=== PATIENT | female | born 1945 | race Caucasian/White ===

== ENCOUNTER → 2017-12-23 14:10 | Outpatient (POV) | payer MEDICARE, OTHER, SELFPAY | PROVIDERS: Visit Provider Dermatology | DX: Z00.00 Encounter for general adult medical examination without abnormal findings (principal) ==

== ENCOUNTER → 2018-03-03 08:25 | Outpatient (POV) | payer MEDICARE, OTHER, SELFPAY | PROVIDERS: Visit Provider Dermatology | DX: Z00.00 Encounter for general adult medical examination without abnormal findings (principal) ==

== ENCOUNTER → 2018-09-09 09:10 | Outpatient (CLI) | payer MEDICARE, OTHER, SELFPAY ==
--- NOTE | 2018-09-09 09:18 | US_ITS ---
US abdomen limited History:Right upper quadrant pain Ordering Physician:Agueda Rudolph APRN Patient Age: 73 years Comparison:None Findings: Pancreas:Unremarkable. No obvious mass or abnormal fluid collection. No ductal dilatation Liver:Unremarkable. No obvious mass or abnormal fluid collection. No ductal dilatation Right Kidney:1 cm cyst is present along the lower pole the right kidney and a 1.6 cm cyst is present in the upper pole. Gallbladder:No gallstones, pericholecystic fluid, gallbladder wall thickening, or biliary dilatation. There are few hyperechoic small foci noted along the gallbladder wall suggesting small polyps. Common bile duct is normal at 4 mm. Impression: 1. Possible small polyps in the gallbladder. No gallstones. 2. Small right renal cysts
== END ==
PROVIDERS: PCP Nurse Practitioner; Visit Provider Nurse Practitioner
DX: R10.11 Right upper quadrant pain (principal)
CPT/HCPCS: 76705

== ENCOUNTER → 2018-09-23 10:19 | Outpatient (CLI) | payer MEDICARE, OTHER, SELFPAY ==
--- NOTE | 2018-09-23 10:25 | NM_ITS ---
NM hepatobiliary w pharm HISTORY: Right upper quadrant pain, abnormal gallbladder ultrasound possible gallbladder polyps ITS.REASON: ABNORMAL US ORDERING PHYSICIAN: Agueda Rudolph APRN PATIENT AGE: 73 years COMPARISON: None DOSE: 8.02 mCi technetium Choletec 1.5 mcg of CCK FINDINGS: Homogeneous activity is present within the hepatic parenchyma. Activity is present in the gallbladder by 20 minutes. Activity is present in the small bowel by 60 minutes. The gallbladder ejection fraction is calculated to be 93% The patient did not report pain or other symptoms during CCK infusion. IMPRESSION: Unremarkable hepatobiliary scan and gallbladder ejection fraction. No evidence of common or cystic duct obstruction with normal gallbladder ejection fraction
== END ==
PROVIDERS: PCP Nurse Practitioner; Visit Provider Nurse Practitioner
DX: R93.89 Abnormal findings on diagnostic imaging of other specified body structures (principal)
CPT/HCPCS: 78227; A9537; J2805

== ENCOUNTER → 2018-12-01 14:26 | Outpatient (POV) | payer MEDICARE, OTHER, SELFPAY | PROVIDERS: Visit Provider Dermatology | DX: Z00.00 Encounter for general adult medical examination without abnormal findings (principal) ==

== ENCOUNTER → 2019-02-23 15:21 | Outpatient (POV) | payer MEDICARE, OTHER, SELFPAY | PROVIDERS: Visit Provider Dermatology | DX: Z00.00 Encounter for general adult medical examination without abnormal findings (principal) ==

== ENCOUNTER → 2019-07-28 12:52 | Outpatient (CLI) | payer MEDICARE, SELFPAY ==
--- NOTE | 2019-07-28 13:04 | US_ITS ---
PROCEDURE: US KIDNEY CLINICAL INDICATION: RENAL CYST Follow-up renal cyst COMPARISON: [facility] US abdomen limited from 09/09/[address] abdomen pelvis wo con from 11/01/2018 FINDINGS: Right kidney is 9 x 5 x 5 cm. There is cortical thinning. There are at least 3 right renal cyst 1 in the upper 1 in the mid and 1 the lower pole. These measure approximately 1 cm. No hydronephrosis. The left kidney is 9 x 5 x 5 cm with mild cortical thinning. There is a 1 cm cyst in the mid polar region and there are left parapelvic cysts versus hydronephrosis. IMPRESSION: Bilateral renal cysts with left parapelvic renal cysts versus hydronephrosis. CT without and with contrast with post enhanced CT with delayed imaging may provide further evaluation and to distinguish between parapelvic renal cysts and hydronephrosis Dictated by: Gibran Dailey MD 07/28/2019 19:24 Electronically signed by Gibran Dailey MD in [place] 07/28/2019 19:24
== END ==
PROVIDERS: PCP Family Medicine; Visit Provider Nurse Practitioner Family
DX: N28.1 Cyst of kidney, acquired (principal)
CPT/HCPCS: 76770

== ENCOUNTER → 2019-08-11 09:42 | Outpatient (CLI) | payer MEDICARE, OTHER, SELFPAY ==
[2019-08-11 11:03] LABS: Blood Urea Nitrogen 31 mg/dl (7-17); Estimated Glomerular Filt Rate 40 ml/min (>60); GFR (African American) 48 ML/MIN (>60)
== END ==
PROVIDERS: Visit Provider Nurse Practitioner Family
DX: N28.1 Cyst of kidney, acquired (principal)
CPT/HCPCS: 36415; 82565; 84520

== ENCOUNTER → 2019-08-13 10:14 | Outpatient (CLI) | payer MEDICARE, SELFPAY ==
--- NOTE | 2019-08-13 10:27 | CT_ITS ---
PROCEDURE: CT ABDOMEN WO/W CON CLINICAL HISTORY: ABNORMAL RENAL ULTRASOUND Hydronephrosis versus parapelvic renal cyst. COMPARISON: [facility] CT abdomen pelvis wo con from 11/01/2018 US KIDNEY from 07/28/2019 TECHNIQUE: Axial images obtained with sagittal and coronal reformats. All CT scans at the facility use one or more dose reduction, viz: automated exposure control, ma/kV adjustment per patient size (including targeted exams where dose is matched to indication, i.e. head), or iterative reconstruction technique. FINDINGS: There is a moderate-sized hiatal hernia. The liver, spleen, adrenal glands, and pancreas have an unremarkable appearance. Scattered small nodes are present in the central mesentery with faint increased density of the central mesenteric fat which is nonspecific and not significantly changed. There are bilateral parapelvic renal cysts. No hydronephrosis. Bilateral renal cortical cysts are also noted. There is a small umbilical hernia containing fat. Levoscoliosis of the lumbar spine with degenerative changes IMPRESSION: The ultrasound abnormality corresponds to bilateral peripelvic renal cysts with small bilateral renal cortical cyst. No hydronephrosis. Moderate-sized hiatal hernia Dictated by: Gibran Dailey MD 08/14/2019 08:49 Electronically signed by Gibran Dailey MD in [place] 08/14/2019 08:49
== END ==
PROVIDERS: PCP Family Medicine; Visit Provider Nurse Practitioner
DX: R93.429 Abnormal radiologic findings on diagnostic imaging of unspecified kidney (principal)
CPT/HCPCS: 74170; Q9967

== ENCOUNTER → 2020-01-25 13:22 | Outpatient (CLI) | payer MEDICARE, SELFPAY ==
--- NOTE | 2020-01-25 13:31 | XR_ITS ---
PROCEDURE: XR HIP LT 2-3V W/PELVIS CLINICAL INDICATION: left hip pain pain and stiffness COMPARISON: [facility] HIP2L HIP-2 VIEWS-LT from 01/04/2013 CR HIP2L HIP-2 VIEWS-LT from 01/19/2013 CR HIP2L HIP-2 VIEWS-LT from 02/16/2013 CR HIP2L HIP-2 VIEWS-LT from 08/11/[address] ABDOMEN WO/W CON from 08/13/2019 FINDINGS: Status post left hip hemiarthroplasty. There is good alignment with no evidence of complications. No acute fracture or dislocation. There are mild osteoarthritic changes of the symphysis pubis and right hip. Degenerative changes lumbar spine IMPRESSION: No acute finding status post left hip hemiarthroplasty. Mild degenerative changes of the right hip and symphysis pubis Dictated by: Gibran Dailey MD 01/26/2020 06:45 Gibran Dailey MD in [place] 01/26/2020 06:45
== END ==
PROVIDERS: PCP Family Medicine; Visit Provider Orthopaedic Surgery
DX: M25.552 Pain in left hip (principal)
CPT/HCPCS: 73502

== ENCOUNTER → 2020-02-09 12:37 | Outpatient (CLI) | payer MEDICARE, SELFPAY ==
--- NOTE | 2020-02-09 12:40 | XR_ITS ---
PROCEDURE: XR KNEE RT 4V CLINICAL INDICATION: right knee pain COMPARISON: No exams were available for comparison FINDINGS: Osteoarthritic changes are present involving all 3 compartments Mild in nature. Small suprapatellar effusion. Other findings:Chondrocalcinosis medial lateral compartment IMPRESSION: Osteoarthritis with small knee joint effusion and chondrocalcinosis Dictated by: Gibran Dailey MD 02/09/2020 14:42 Gibran Dailey MD in [place] 02/09/2020 14:42
--- NOTE | 2020-02-09 12:40 | XR_ITS ---
PROCEDURE: XR KNEE LT 4V CLINICAL INDICATION: left knee pain COMPARISON: No exams were available for comparison FINDINGS: No fracture or dislocation. No lytic or blastic change. There is normal mineralization. There are mild osteoarthritic changes involving all 3 compartments. Minimal chondrocalcinosis of the medial and lateral meniscus. Other findings:None. IMPRESSION: Mild osteoarthritis with chondrocalcinosis Dictated by: Gibran Dailey MD 02/09/2020 14:44 Gibran Dailey MD in [place] 02/09/2020 14:44
== END ==
PROVIDERS: PCP Family Medicine; Visit Provider Orthopaedic Surgery
DX: M25.562 Pain in left knee (principal); M25.561 Pain in right knee
CPT/HCPCS: 73564

== ENCOUNTER → 2020-05-22 14:38 | Outpatient (CLI) | payer MEDICARE, SELFPAY ==
[2020-05-22 17:08] LABS: Blood Urea Nitrogen 28 mg/dl (7-17); Estimated Glomerular Filt Rate 40 ml/min (>60); GFR (African American) 48 ML/MIN (>60)
== END ==
PROVIDERS: Visit Provider Nurse Practitioner Family
DX: Z01.818 Encounter for other preprocedural examination (principal); R10.31 Right lower quadrant pain; N39.0 Urinary tract infection, site not specified; N81.10 Cystocele, unspecified
CPT/HCPCS: 36415; 82565; 84520

== ENCOUNTER → 2020-05-23 10:33 | Outpatient (CLI) | payer MEDICARE, SELFPAY ==
--- NOTE | 2020-05-23 10:37 | CT_ITS ---
PROCEDURE: CT ABDOMEN PELVIS W CON CLINICAL INDICATION: RECURRENT UTI, FEMALE BLADDER PROLAPSE, RLQ ABD PAIN COMPARISON: CT CT ABDOMEN WO/W CON from 08/13/2019 TECHNIQUE: IV Contrast: 75ML Isovue 370 Oral Contrast None Axial images obtained with sagittal and coronal reformats. All CT scans at the facility use one or more dose reduction, viz: automated exposure control, ma/kV adjustment per patient size (including targeted exams where dose is matched to indication, i.e. head), or iterative reconstruction technique. FINDINGS: There is a large right hiatal hernia. There are coronary artery calcifications present. The liver, gallbladder, spleen, and adrenal glands have an unremarkable appearance. Unremarkable appearing pancreas. Multiple bilateral parapelvic and renal cortical cysts are present. No hydronephrosis. No renal calculi. No ureteral calculi. There is mild haziness of the mesenteric fat not significantly changed in central mesenteric region. There has been a prior appendectomy. There is diffuse colonic diverticulosis but no evidence of diverticulitis. There has been a prior hysterectomy. No abdominal wall hernias. There are few scattered small mesenteric lymph nodes. There is lumbar scoliosis convex left. Prior left hip arthroplasty placement with mild acetabular protrusio. IMPRESSION: 1. No acute finding. 2. Large hiatal hernia 3. Colonic diverticulosis without diverticulitis Dictated by: Gibran Dailey MD 05/24/2020 14:31 Gibran Dailey MD in [place] 05/24/2020 14:31
== END ==
PROVIDERS: PCP Family Medicine; Visit Provider Nurse Practitioner Family
DX: R10.31 Right lower quadrant pain (principal); N39.0 Urinary tract infection, site not specified; N81.10 Cystocele, unspecified
CPT/HCPCS: 74177; Q9967

== ENCOUNTER → 2021-12-07 08:56 | Outpatient (CLI) | payer MEDICARE, SELFPAY ==
--- NOTE | 2021-12-07 09:02 | CT_ITS ---
FINAL REPORT CLINICAL HISTORY: RENAL CYST COMPARISON: May 24, 2019 lungs FINDINGS: CT ABDOMEN with and without: PROCEDURE: Axial images were obtained from the lung base to the iliac crest by computed tomography before and after the administration of contrast. This study was performed with techniques to keep radiation doses as low as reasonably achievable (ALARA). Individualized dose reduction techniques using automated exposure control or adjustment of mA and/or kV according to the patient's size were employed. ABDOMEN: There is a moderate hiatal hernia. There is mild scarring in the lung bases. A calcified granuloma is seen in the right lung base. The heart is normal in size. The liver is normal. The gallbladder is present. The spleen is normal. No adrenal masses present. The pancreas is normal. There are several bilateral low-attenuation renal masses that appears slightly larger than on the prior exam and have imaging characteristics consistent with simple cysts. There are also bilateral parapelvic renal cysts. There is diffuse vascular calcification. The aorta is normal in caliber. There is no free fluid or adenopathy. IMPRESSION: Bilateral renal cysts, slightly larger. Bilateral parapelvic renal cysts. Moderate hiatal hernia. Reviewed, Interpreted and Dictated by Kevin Cosby III, MD Transcribed by Memo Varner Authenticated and [facility]
[2021-12-07 09:34] LABS: Blood Urea Nitrogen 32 mg/dl (7-17); Estimated Glomerular Filt Rate 37 ml/min (>60); GFR (African American) 44 ML/MIN (>60)
== END ==
PROVIDERS: PCP Family Medicine; Visit Provider Nurse Practitioner Family
DX: N28.1 Cyst of kidney, acquired (principal)
CPT/HCPCS: 36415; 74170; 82565; 84520; Q9967

== ENCOUNTER → 2021-12-18 15:57 | Outpatient (CLI) | payer MEDICARE, SELFPAY ==
[2021-12-18 19:35] LABS: Basophils % 0.5 % (0.1-2.0); Eosinophils # 0.1 K/mm3 (0.0-0.4); Eosinophils % 1.3 % (0.1-12.0); Hematocrit 33.5 % (37.0-47.0); Hemoglobin 10.8 g/dL (12.2-16.2); Lymphocytes # 1.1 K/mm3 (0.7-4.5); Lymphocytes % 14.4 % (10-50); Mean Corpuscular HGB Conc 32.2 g/dL (31.8-35.4); Mean Corpuscular Hemoglobin 32.4 pg (27.0-31.2); Mean Corpuscular Volume 100.6 fl (81-99); Mean Platelet Volume 8.4 fl (7.4-10.4); Monocytes # 0.5 K/mm3 (0.1-1.0); Monocytes % 5.8 % (1.7-9.3); Neutrophils # 6.1 K/mm3 (1.8-7.8); Neutrophils % 78.1 % (37.0-80.0); Platelet Count 338 K/mm3 (142-424); Red Blood Count 3.32 M/mm3 (4.20-5.40); Red Cell Distribution Width 13.6 % (11.5-17.5); White Blood Count 7.8 K/mm3 (4.8-10.8)
[2021-12-18 20:10] LABS: Thyroid Stimulating Hormone 0.58 uIU/mL (0.465-4.68)
== END ==
PROVIDERS: PCP Family Medicine; Visit Provider Family Medicine
DX: K57.90 Diverticulosis of intestine, part unspecified, without perforation or abscess without bleeding (principal); N28.1 Cyst of kidney, acquired; D64.9 Anemia, unspecified
CPT/HCPCS: 84443; 85025

== ENCOUNTER 2022-04-06 10:19 | Emergency (ER) | payer MEDICARE, SELFPAY ==
[2022-04-06 10:30] VITALS: BP 152/70; PULSE 108; RESP 20; TEMP 36.7; O2SAT 98; BMI 27.4
--- NOTE | 2022-04-06 10:53 | EXP.UTC ---
Discharge Plan Disposition Patient Disposition: Home, Self-Care Condition: Good Prescriptions Prescriptions: New prednisone 10 mg tablets,dose pack 10 mg PO DIRECTED Qty: 21 0RF Rx Instructions: see taper instructions No Action atorvastatin 40 mg tablet 40 mg PO HS Qty: 90 3RF citalopram 20 mg tablet 20 mg PO DAILY Qty: 90 3RF ferrous gluconate 324 mg (37.5 mg iron) tablet 324 mg (37.5 mg iron) tablet 324 mg PO DAILY Qty: 90 3RF levothyroxine 88 mcg tablet 88 mcg PO DAILY Qty: 90 3RF lisinopril-hydrochlorothiazide 10-12.5 mg tablet 1 tab PO DAILY Qty: 90 3RF trazodone 50 mg tablet 50 mg PO DAILY PRN (Reason: insomnia) Qty: 30 2RF ferrous gluconate 324 mg (38 mg iron) tablet 324 mg PO DAILY Label Comments: TAKE 1 TABLET BY MOUTH ONCE DAILY Debrox 6.5 % drops 5 drp otic (ear) DAILY 4 Days Qty: 15 0RF esomeprazole magnesium 40 mg Capsule,Delayed Release(Dr/Ec) 40 mg PO DAILY Referrals Follow up/Referrals: Ryan Wall MD [Primary Care Provider] - See instructions Clinical Impressions Clinical Impression: Gout attack Instructions Patient Instructions: Gout (Alternative Therapy), Gout, DI for Gout, Higher Vitamin C Intake Associated With Lower Risk of Gout Discharge ED Provider: Gertrude Dhillno [facility] General Stated complaint: left middle finger swollen and painful Source of Information: Patient Limitations: No Limitations Time Seen by Provider: 04/06/22 10:40 Description of Symptoms (Recalled from Triage Doc. by RN): gout in my finger on left hand. Two months ago had a steriod shot, and this has gotten worse since last night. HEENT Symptoms (Recalled from RN notes): No Resp Symptoms (Recalled from RN notes): No Skin Symptoms (Recalled from RN notes): No MS Symptoms (Recalled from RN notes): Yes (left middle finger) Functional Status (Recalled from RN notes): n/a History of Present Illness Provider Complaint: Pt relates that she has had gout issues in the past and gotten Colchicine and steroids that helped. She states that she has colchicine at home but has not taken them as her doctor told her to take sparingly. She states that she has been eating a lot red meat as she is a little anemic. She states that she could not sleep due to the pain in her left middle finger. Related Data Home Medications Medication Instructions Recorded Confirmed ferrous gluconate 324 mg (38 mg 324 mg PO DAILY 03/27/22 03/27/22 iron) tablet esomeprazole magnesium 40 mg 40 mg PO DAILY GERD 04/06/22 04/06/22 capsule,delayed release Previous Rx's Medication Instructions Recorded atorvastatin 40 mg tablet 40 mg PO HS Cholesterol #90 tabs 12/18/21 citalopram 20 mg tablet 20 mg PO DAILY Depression #90 tabs 12/18/21 ferrous gluconate 324 mg (37.5 mg 324 mg PO DAILY #90 tabs 12/18/21 iron) tablet levothyroxine 88 mcg tablet 88 mcg PO DAILY thyroid #90 tabs 12/18/21 lisinopril 10 1 tab PO DAILY High blood pressure 12/18/21 mg-hydrochlorothiazide 12.5 mg #90 tabs tablet trazodone 50 mg tablet 50 mg PO DAILY PRN insomnia #30 03/01/22 tabs carbamide peroxide 6.5 % ear drops 5 drp otic (ear) DAILY 4 days #15 03/20/22 (Debrox) mL prednisone 10 mg tablets in a dose 10 mg PO DIRECTED #21 tabs 04/06/22 pack Allergies Allergy/AdvReac Type Severity Reaction Status Date / Time codeine [CODEINE] Allergy Unknown Verified 04/06/22 10:31 hydrocodone AdvReac Intermediate Nausea Verified 04/06/22 10:31 Worker's Comp Is this a Worker's Comp case?: No [facility] Disclaimer: The information contained in this section may have been updated after the patient was seen, as this information can be updated by other users. Medical History (Updated 04/06/22 @ 11:03 by Gertrude Dhillon APRN) Impacted cerumen of right ear Social History Smoking Status: Never smoker alcohol intake: current
[2022-04-06 11:16] VITALS: BP 152/70; PULSE 108; RESP 20; TEMP 36.7; O2SAT 98
== END 2022-04-06 11:16 | disposition home or self-care (01) ==
PROVIDERS: Emergency Provider Nurse Practitioner Family; PCP Family Medicine
DX: M10.9 Gout, unspecified (principal)
CPT/HCPCS: 99212; 99213; G0463

== ENCOUNTER → 2022-07-10 17:00 | Outpatient (CLI) | payer MEDICARE, SELFPAY ==
[2022-07-10 16:44] LABS: Adenovirus,PCR Not Detected (NotDetected); Bordetella Pertussis Not Detected (NotDetected); Chlamydophila Pneumoniae, PCR Not Detected (NotDetected); Coronavirus 229E Not Detected (NotDetected); Coronavirus NL63 Not Detected (NotDetected); Coronavirus OC43 Not Detected (NotDetected); Coronovirus HKU1,PCR Not Detected (NotDetected); Human Metapneumovirus Not Detected (NotDetected); Influenza A, PCR Not Detected (NotDetected); Influenza AH1, 2009 Not Detected (NotDetected); Influenza AH1, PCR Not Detected (NotDetected); Influenza AH3,PCR Not Detected (NotDetected); Influenza B, PCR Not Detected (NotDetected); Mycoplasma Pneumoniae, PCR Not Detected (NotDetected); Parainfluenza 1, PCR Not Detected (NotDetected); Parainfluenza 2, PCR Not Detected (NotDetected); Parainfluenza 3, PCR Not Detected (NotDetected); Parainfluenza 4, PCR Not Detected (NotDetected); Respiratory Syncytial Virus Not Detected (NotDetected); Rhinovirus/Enterovirus Not Detected (NotDetected)
[2022-07-10 19:24] LABS: Coronavirus 19, PCR Detected (NotDetected)
== END ==
PROVIDERS: PCP Nurse Practitioner Family; Visit Provider Nurse Practitioner Family
DX: R05.9 Cough, unspecified (principal); R53.83 Other fatigue; U07.1 COVID-19
CPT/HCPCS: 87581; 87632; 87798; C9803; U0003; U0005

== ENCOUNTER → 2022-11-29 11:37 | Outpatient (CLI) | payer MEDICARE, SELFPAY ==
--- NOTE | 2022-11-29 11:47 | XR_ITS ---
FINAL REPORT CLINICAL HISTORY: PAIN COMPARISON: None FINDINGS: RIGHT ANKLE: Three views of the right ankle were obtained. There is no acute fracture or dislocation. Mild degenerative change is noted. Vascular calcifications are present. There is calcification in the posterior plantar aponeurosis, and in the distal Achilles tendon. There is no soft tissue abnormality. IMPRESSION: No acute bony abnormality. Degenerative change as described. Reviewed, Interpreted and Dictated by Kevin Cosby III, MD Transcribed by Cynthia Gifford Authenticated and [facility]
--- NOTE | 2022-11-29 11:47 | XR_ITS ---
FINAL REPORT CLINICAL HISTORY: PAIN COMPARISON: None FINDINGS: RIGHT FOOT: Three views of the right foot were obtained. There is no acute fracture or dislocation. The joint spaces are intact. There are soft tissue calcifications medial and lateral to the first metatarsal head. There is calcification in the distal Achilles tendon as well as in the posterior plantar aponeurosis. IMPRESSION: No acute bony abnormality. Multiple soft tissue calcifications as described above. Reviewed, Interpreted and Dictated by Kevin Cosby III, MD Transcribed by Cynthia Gifford Authenticated and [facility]
== END ==
PROVIDERS: PCP Family Medicine; Visit Provider Family Medicine
DX: M25.571 Pain in right ankle and joints of right foot (principal); M79.671 Pain in right foot
CPT/HCPCS: 73610; 73630

== ENCOUNTER 2023-04-24 11:12 | Outpatient (CLI) | payer MEDICARE, SELFPAY ==
--- NOTE | 2023-04-24 11:27 | XR_ITS ---
FINAL REPORT CLINICAL HISTORY: right knee pain FINDINGS: RIGHT KNEE 3 views of the right knee were obtained. There is no acute fracture or dislocation.There is moderate tricompartmental degenerative change. Visualized joint spaces are normally aligned. Soft tissues are unremarkable. IMPRESSION: No acute bony abnormality. Reviewed, Interpreted and Dictated by Brittni Grant MD Transcribed by Pilar Torres Authenticated and [facility]
--- NOTE | 2023-04-24 11:27 | XR_ITS ---
FINAL REPORT CLINICAL HISTORY: left knee pain FINDINGS: LEFT KNEE 3 views of the left knee were obtained. There is no acute fracture or dislocation. There is irregularity of the lateral tibial plateau which may be due to osteochondral defects or old fracture. There is moderate degenerative change. Bones are osteopenic. Visualized joint spaces are normally aligned. Soft tissues are unremarkable. IMPRESSION: No acute bony abnormality. Reviewed, Interpreted and Dictated by Brittni Grant MD Transcribed by Pilar Torres Authenticated and [facility]
== END 2023-04-24 23:59 ==
LOC: RAD 11:13
PROVIDERS: PCP Family Medicine; Visit Provider Orthopaedic Surgery
DX: M25.561 Pain in right knee (principal); M25.562 Pain in left knee
CPT/HCPCS: 73562

== ENCOUNTER 2023-08-12 15:54 | Outpatient (CLI) | payer MEDICARE, SELFPAY ==
--- NOTE | 2023-08-12 15:58 | MR_ITS ---
FINAL REPORT CLINICAL HISTORY: CERVICAL SPINE PAIN. pain back of neck and shoulders. FINDINGS: Multi planar MR imaging was obtained of the cervical spine. There is abnormal decreased signal throughout the cervical discs. The vertebrae are of normal height. There is no malalignment. The cervical cord demonstrates normal signal and configuration. C2-C3: There is no evidence of significant disc bulge or protrusion. There is no significant facet hypertrophy. C3-C4: Mild endplate hypertrophy is present with mild bilateral neural foraminal narrowing. C4-C5: Mild diffuse disc bulge is present with mild bilateral neural foraminal narrowing. C5-C6: Mild diffuse disc bulge is present with moderate right and mild left neural foraminal narrowing. C6-C7: Mild diffuse disc bulge is present with mild bilateral neural foraminal narrowing. C7-T1: There is no evidence of significant disc bulge or protrusion. There is no significant facet hypertrophy. IMPRESSION: Multilevel degenerative disc disease, most evident at C5-6 and C6-7. Reviewed, Interpreted and Dictated by Javi Potter MD Transcribed by Alejandrina Durbin Authenticated and [facility]
== END 2023-08-12 23:59 | disposition home or self-care (01) ==
LOC: RAD 15:54
PROVIDERS: PCP Family Medicine; Visit Provider Specialist/Technologist Athletic Trainer
DX: M54.2 Cervicalgia (principal)
CPT/HCPCS: 72141

== ENCOUNTER 2023-09-10 16:00 | Outpatient (RCR) | payer MEDICARE, SELFPAY | END 2023-09-10 17:00 | disposition home or self-care (01) | LOC: PT 16:00 | PROVIDERS: Visit Provider Specialist/Technologist Athletic Trainer | DX: M54.2 Cervicalgia (principal) | CPT/HCPCS: 97010; 97014; 97110; 97140; 97163; 97164; G0283 ==

== ENCOUNTER 2024-01-04 17:15 | Emergency (ER) | payer MEDICARE, SELFPAY ==
[2024-01-04 17:17] VITALS: BP 175/87; PULSE 95; RESP 18; TEMP 36.9; O2SAT 97; BMI 25.6
[2024-01-04 17:26] VITALS: BP 175/87; PULSE 75; O2SAT 98
[2024-01-04 17:31] VITALS: BP 143/58; PULSE 105; O2SAT 97
[2024-01-04 17:32] LABS: Microscopic, Urine URINE MICROSCOPIC (MICROSCOPIC)
[2024-01-04 17:36] LABS: Appearance,Urine CLEAR (Clear); Bilirubin,Urine Negative (Negative); Blood, Urine Negative (Negative); Color,Urine YELLOW (Yellow); Glucose,Urine (UA) Negative (Negative); Ketones,Urine Negative (Negative); Leukocyte Esterase,Urine 3+ (Negative); Nitrate,Urine POSITIVE (Negative); Protein,Urine Negative (Negative)
[2024-01-04 17:42] LABS: WBC,Urine 50-100 #/hpf (0-3)
[2024-01-04 17:43] LABS: Bacteria,Urine 3+ /lpf
[2024-01-04 17:47] LABS: Basophils # 0.1 K/mm3 (0-0.2); Basophils % 0.6 % (0.1-2.0); Eosinophils # 0.2 K/mm3 (0.0-0.4); Eosinophils % 1.5 % (0.1-12.0); Hematocrit 31.8 % (37.0-47.0); Hemoglobin 10.6 g/dL (12.2-16.2); Lymphocytes # 1.8 K/mm3 (0.7-4.5); Lymphocytes % 17.1 % (10-50); Mean Corpuscular HGB Conc 33.3 g/dL (31.8-35.4); Mean Corpuscular Hemoglobin 31.8 pg (27.0-31.2); Mean Corpuscular Volume 95.4 fl (81-99); Mean Platelet Volume 7.9 fl (7.4-10.4); Monocytes # 0.8 K/mm3 (0.1-1.0); Monocytes % 7.2 % (1.7-9.3); Neutrophils # 7.9 K/mm3 (1.8-7.8); Neutrophils % 73.6 % (37.0-80.0); Platelet Count 296 K/mm3 (142-424); Red Blood Count 3.34 M/mm3 (4.20-5.40); Red Cell Distribution Width 13.9 % (11.5-17.5); White Blood Count 10.7 K/mm3 (4.8-10.8)
[2024-01-04 17:48] LABS: Albumin Level 3.9 g/dl (3.5-5.0); Chloride 103 mmol/L (98-107); Sodium 136 mmol/L (136-145)
[2024-01-04 17:49] LABS: Potassium 3.7 mmoL/L (3.5-5.1)
[2024-01-04 17:51] LABS: Alanine Aminotransferase 23 U/L (12-78); Albumin/Globulin Ratio 1.3 (1.1-1.8); Alkaline Phosphatase 109 U/L (38-126); Anion Gap 9.7 mEq/L (5-15); Aspartate Amino Transferase 26 U/L (14-36); Bilirubin,Total 0.8 mg/dl (0.2-1.3); Blood Urea Nitrogen 22 mg/dl (7-17); Carbon Dioxide 27 mmol/L (22.0-30.0); Creatinine Clearance Estimated 36 mL/min (50-200); Estimated Glomerular Filt Rate 40 ml/min (>60); GFR (African American) 48 ML/MIN (>60); Total Protein,Serum 6.9 g/dl (6.3-8.2)
--- NOTE | 2024-01-04 17:51 | ED_ITS ---
Discharge Plan Disposition Patient Disposition: Home, Self-Care Prescriptions Prescriptions: New cefdinir 300 mg capsule 300 mg PO BID 5 Days Qty: 10 0RF phenazopyridine 100 mg tablet 100 mg PO TID PRN (Reason: pain) Qty: 14 0RF No Action citalopram 20 mg tablet 20 mg PO DAILY Qty: 90 3RF levothyroxine 100 mcg tablet 100 mcg PO DAILY Patient Comments: TAKE 1 TABLET BY MOUTH ONCE DAILY IN THE MORNING ON AN EMPTY STOMACH meloxicam 7.5 mg tablet 7.5 mg PO DAILY Patient Comments: TAKE 1 TABLET BY MOUTH ONCE DAILY levothyroxine 88 mcg tablet 88 mcg PO DAILY Patient Comments: TAKE 1 TABLET BY MOUTH IN THE MORNING ON AN EMPTY STOMACH ferrous gluconate 324 mg (38 mg iron) tablet 324 mg PO BID Patient Comments: TAKE 1 TABLET BY MOUTH TWICE DAILY nystatin 100,000 unit/gram powder 1 applic topical DAILY Qty: 30 2RF lisinopril-hydrochlorothiazide 10-12.5 mg tablet See Rx Instructions .ROUTE .COMPLEX Qty: 90 0RF Dose Instruction: TAKE 1 TABLET BY MOUTH ONCE DAILY FOR HIGH BLOOD PRESSURE Rx Instructions: TAKE 1 TABLET BY MOUTH ONCE DAILY FOR HIGH BLOOD PRESSURE atorvastatin 40 mg tablet See Rx Instructions .ROUTE .COMPLEX Qty: 90 0RF Dose Instruction: TAKE 1 TABLET BY MOUTH AT NIGHT FOR CHOLESTEROL Rx Instructions: TAKE 1 TABLET BY MOUTH AT NIGHT FOR CHOLESTEROL trazodone 50 mg tablet See Rx Instructions .ROUTE .COMPLEX Qty: 30 0RF Dose Instruction: TAKE 1 TABLET BY MOUTH ONCE DAILY NEEDED FOR INSOMNIA Rx Instructions: TAKE 1 TABLET BY MOUTH ONCE DAILY NEEDED FOR INSOMNIA esomeprazole magnesium 40 mg Capsule,Delayed Release(Dr/Ec) 40 mg PO DAILY Referrals Follow up/Referrals: Christal Claudio MD [Primary Care Provider] - See instructions Activity Restrictions/Add. Instructions Additional Instructions/Restrictions: Antibiotic twice daily for full course. Pyridium as prescribed for burning with urination. Call your family doctor to establish care for this visit to the emergency department and schedule follow-up within 48 hours to ensure improvement. If you have any worsening of your condition or any other concerning signs or symptoms, return to the emergency department or your primary care doctor for further evaluation. Clinical Impressions Clinical Impression: Cystitis Instructions Patient Instructions: DI for Urinary Tract Infection (UTI), DI for Urinary Tract Infection in Children Print Language Print Language: Nepali Discharge ED Provider: Magdaleno Woody General Adult HPI General Chief complaint: Urogenital-Female Stated complaint: possible UTI Time Seen by Provider: 01/04/24 17:18 Mode of Arrival: Ambulatory Source of Information: Patient Limitations: No Limitations Description of Symptoms (Recalled from ER Triage Doc. by RN): generalized weakness,urinary symptoms History of Present Illness HPI narrative: Please note that above description of symptoms, in this electronic medical record under categorization of recalled from ER triage doctor by RN are reflective of an initial nursing assessment, however, is not reflective of my full history and physical exam that was personally taken and clarified. Consequentially, this preceding description of symptoms, which may include the patient's categorized chief complaint in the EMR, do not reflect my personal clinical impression, and the ultimate description of history of present illness and patient stated complaints should be deferred to this section of the note. Unless stated otherwise or congruent with this section of the note, additional signs, symptoms, or incongruence should be interpreted as inaccurate with my clinical impression. Related Data Home Medications ?Medication ?Instructions ?Recorded ?Confirmed esomeprazole magnesium 40 mg 40 mg PO DAILY GERD 04/06/22 09/10/23 capsule,delayed release levothyroxine 100 mcg tablet 100 mcg PO DAILY 06/06/23 09/10/23 meloxicam 7.5 mg tablet 7.5 mg PO DAILY 06/06/23 09/10/23 ferrous gluconate 324 mg (38 mg 324 mg PO BID 09/10/23 09/10/23 iron) tablet levothyroxine 88 mcg tablet 88 mcg PO DAILY 09/10/23 09/10/23 Previous Rx's ?Medication ?Instructions ?Recorded citalopram 20 mg tablet 20 mg PO DAILY Depression #90 tabs 12/18/21 lisinopril 10 See Rx Instructions .Route 02/18/23 mg-hydrochlorothiazide 12.5 mg .COMPLEX #90 tabs tablet atorvastatin 40 mg tablet See Rx Instructions .Route 08/19/23 .COMPLEX #90 tabs trazodone 50 mg tablet See Rx Instructions .Route 09/02/23 .COMPLEX #30 tabs nystatin 100,000 unit/gram topical 1 applic topical DAILY #30 grams 09/10/23 powder cefdinir 300 mg capsule 300 mg PO BID 5 days #10 caps 01/04/24 phenazopyridine 100 mg tablet 100 mg PO TID PRN pain #14 tabs 01/04/24 Allergies Allergy/AdvReac Type Severity Reaction Status Date / Time codeine [CODEINE] Allergy Unknown Verified 09/10/23 10:24 hydrocodone AdvReac Intermediate Nausea Verified 09/10/23 10:24 PFSH [facility] Disclaimer: The information contained in this section may have been updated after the patient was seen, as this information can be updated by other users. Medical History Left foot pain Finger pain, left Impacted cerumen of right ear Cerumen debris on tympanic membrane Gout attack UTI (urinary tract infection) Abdominal pain Surgical History H/O total hysterectomy History of appendectomy Family History Other Anemia Hyperlipidemia Hypertension Stroke Social History Smoking Status: Never smoker alcohol intake: current alcohol intake frequency: holidays/special occasions only substance use type: denies use current occupational status: retired Travel in the last 8 weeks: None caffeine: No Other Medical History Have you received the Flu Vaccine for this season: No Have you received the Pneumonia Vaccine: Yes ROS Obtained: Yes All systems reviewed & no additional complaints except as documented Physical Exam General General appearance: alert Head Head exam: atraumatic and normocephalic Eye Eye exam: Present normal appearance, PERRL and EOMI Neck Neck exam: Present normal inspection, full ROM and trachea midline Respiratory Respiratory exam: Absent respiratory distress, wheezes, stridor, accessory muscle use or prolonged expiratory phase Cardiovascular Cardiovascular exam: Present other (Pulses equal symmetric in upper and lower extremities) Abdominal Exam Abdominal exam: Present soft; Absent distention, tenderness or pulsatile mass Extremities Exam Extremities exam: Absent edema Neurological Exam Neurological exam: Present alert, oriented X3 and CN II-XII intact; Absent motor sensory deficit Skin Skin exam: Present warm and dry; Absent diaphoresis or erythema Medical Decision Making Medical Records Medical records reviewed: Yes I reviewed the patient's medical records. Screening: Per USPSTF and CDC recommendations, given the prevalence of disease in our region, it is our hospital?s policy to screen for HIV and viral Hepatitis for all patients aged 18 and over and those with ongoing risk factors. Marcial Inquiry Pt receiving controlled substance: No Marcial was queried for this patient: No Vital Signs: 01/04/24 17:17 01/04/24 17:26 01/04/24 17:31 Temperature 98.4 F Temperature Source Oral Pulse Rate 75 105 H Pulse Rate [Right] 95 H Respiratory Rate 18 Blood Pressure 175/87 H 143/58 H Blood Pressure [Right Arm] 175/87 H Blood Pressure Mean [Right Arm] 116 02 Sat by Pulse Oximetry 97 98 97 01/04/24 18:07 Temperature Temperature Source Pulse Rate 81 Pulse Rate [Right] Respiratory Rate Blood Pressure 125/68 Blood Pressure [Right Arm] Blood Pressure Mean [Right Arm] 02 Sat by Pulse Oximetry 98 Lab Data Lab Results 01/04/24 13:24: Urine Color Yellow, Urine Appearance Clear, Urine pH 7.0, Ur Specific [place] 1.010, Urine Protein Negative, Urine Glucose (UA) Negative, Urine Ketones Negative, Urine Blood Negative, Urine Nitrate Positive, Urine Bilirubin Negative, Urine Urobilinogen 2.0, Ur Leukocyte Esterase 3+ A, Urine RBC 3-5, Urine WBC 50-100, Ur Squamous Epith Cells 10-20, Urine Bacteria 3+ 01/04/24 17:30: WBC 10.7, RBC 3.34 L, Hgb 10.6 L, Hct 31.8 L, MCV 95.4, MCH 31.8 H, MCHC 33.3, RDW 13.9, Plt Count 296, MPV 7.9, Neut % (Auto) 73.6, Lymph % (Auto) 17.1, [place] % (Auto) 7.2, Eos % (Auto) 1.5, Baso % (Auto) 0.6, Neut # (Auto) 7.9 H, Lymph # (Auto) 1.8, [place] # (Auto) 0.8, Eos # (Auto) 0.2, Baso # (Auto) 0.1, Sodium 136, Potassium 3.7, Chloride 103, Carbon Dioxide 27, Anion Gap 9.7, BUN 22 H, Creatinine 1.30 H, Estimated Creat Clear 36, Estimated GFR 40 L, Est GFR ( Amer) 48 L, Glucose 101 H, Calcium 9.3, Total Bilirubin 0.8, AST 26, ALT 23, Alkaline Phosphatase 109, Total Protein 6.9, Albumin 3.9, Globulin 3.0, Albumin/Globulin Ratio 1.3 01/04/24 17:30 01/04/24 17:30 Orders (Tests/Meds): ED MEDICATIONS Discontinued Medications Generic Name Dose Route Start Last Admin Trade Name Anthony PRN Reason Stop Dose Admin Ceftriaxone Sodium 1 gm/ 50 mls @ 100 mls/hr 01/04/24 17:45 01/04/24 18:02 Sodium Chloride IV 01/04/24 18:14 100 mls/hr ONCE ONE Administration Phenazopyridine HCl 100 mg 01/04/24 17:54 01/04/24 18:02 Phenazopyridine 200mg Tablet PO 01/04/24 17:55 100 mg ONCE ONE Administration ORDERS Category Date Time Status CBC w/Auto Diff [Complete Blood Count Auto Diff] Stat Lab 01/04/24 17:30 Completed CMP [Comprehensive Metabolic Panel] Stat Lab 01/04/24 17:30 Completed HIV (1&2) Antibody Rapid Stat Lab 01/04/24 17:30 Received Hep C Ab with Reflex to RNA Stat Lab 01/04/24 17:30 Received UA [Urinalysis and Microscopic] Stat Lab 01/04/24 13:24 Completed Urine Culture Stat Micro 01/04/24 13:24 Received Medical Decision Narrative: 78-year-old female history of hypertension, hyperlipidemia, CKD 1, fibromyalgia presenting with urinary symptoms. Patient states that she started having burning when she was urinating and frequency starting 2 days prior to this. Has been getting worse. Does not radiate. no nausea, vomiting, fevers, chills, vaginal discharge or bleeding, or any other concerns. Not associated with food intake. No bowel symptoms. States that it feels like she has a UTI, concerned that she may be dehydrated in the setting of CKD. Once labs dehydration and fluids if she needs them. IV fluid shortage was explained, if need be, patient may be candidate to receive. Labs to be drawn first. History was obtained via conversation with patient and . On arrival, patient hemodynamically stable, alert, oriented x4, appropriate, GCS 15, moving all extremities spontaneously, pupils equal and reactive to light. Full physical exam performed and significant for uncomfortable appearing female in no acute distress. Walking around the room, holding her thighs. Appears to be uncomfortable. No abdominal tenderness or flank tenderness. No overlying skin changes. Differential includes UTI, nephrolithiasis, less likely to be gastritis, enteritis, diverticulitis, aortic pathology, among others.. Patient placed on continuous cardiac monitoring and continuous pulse ox with initial blood pressure 143/58, heart rate 5, saturation 97% on room air. Patient was given ceftriaxone and phenazopyridine. For symptomatic management and correction of underlying abnormalities. Workup independently interpreted and significant for nonactionable CBC. Stable CKD with creatinine 1.3. Patient's urinalysis with bacteria, leukocyte esterase, nitrates without blood or protein. On reevaluation, patient resting at baseline. Given patient presentation, workup, history, this most likely represents uncomplicated cystitis. Because patient at baseline without signs or symptoms of clinical decompensation, deemed appropriate for discharge. Results were relayed to patient who voiced understanding and were agreeable to outpatient management and follow up. I discussed my clinical impression with patient and answered all questions. At this time, the evidence for any other entities in the differential is insufficient to warrant any further testing or ED observation. This was explained as well. Advisory was given that persistent or worsening symptoms require further evaluation. I confirmed the understanding of this discussion. [employer] disclaimer Much of this encounter note is an electronic transmission repairer spoken language to printed text. Electronic transmission repairer of the spoken language may permit errors. Although I have reviewed the note, some errors may still exist. Critical Care Critical Care Time Critical Care Time: No
[2024-01-04 17:52] LABS: Calcium 9.3 mg/dl (8.4-10.2); Glucose 101 mg/dl (74-100)
[2024-01-04] MEDS: CEFTRIAXONE 1 GM 1 GM in 0.9 % SODIUM CHLORIDE 50 ML IV (18:02)
[2024-01-04] MEDS: PHENAZOPYRIDINE 200MG TABLET 100 MG PO (18:02)
[2024-01-04 18:07] VITALS: BP 125/68; PULSE 81; O2SAT 98
--- NOTE | 2024-01-04 18:09 | PC.NURSE ---
Dr. Woody at BS to update pt on results and POC
[2024-01-04 18:30] VITALS: BP 152/69; PULSE 72; O2SAT 95
[2024-01-04 18:39] VITALS: BP 148/95; PULSE 84; RESP 18; TEMP 36.9
[2024-01-04 22:52] LABS: HIV (1&2) Antibody Rapid NONREACTIVE (NONREACTIVE)
--- NOTE | 2024-01-05 09:22 | PC.NURSE ---
urine culture discussed with , pt dc wtih cefdinir, ntd
[2024-01-06 08:19] LABS: HCV Ab Non Reactive (Non Reactive)
== END 2024-01-04 18:42 | disposition home or self-care (01) ==
PROVIDERS: Emergency Provider Emergency Medicine; PCP Family Medicine
DX: N30.90 Cystitis, unspecified without hematuria (principal); R30.0 Dysuria; R35.0 Frequency of micturition
CPT/HCPCS: 80053; 81001; 85025; 86803; 87086; 87088; 87186; 87389; 99282; J0696

== ENCOUNTER 2024-06-15 08:19 | Day surgery (SDC) | payer MEDICARE, SELFPAY ==
[2024-06-11 12:21] VITALS: BMI 25.4
[2024-06-15] VITALS (7 sets, daily range): BP systolic 134–177; BP diastolic 62–75; PULSE 61–70; RESP 16; TEMP 36.5–36.6; O2SAT 97–100
[2024-06-15] MEDS: TETRACAINE 0.5% OPTH SOL 15ML OP ×3 (09:47→09:48)
[2024-06-15] MEDS: PHENYLEPHRINE 2.5% OPHTH SOLN 2ML OP ×3 (09:48→09:49)
[2024-06-15] MEDS: CYCLOPENTOLATE 2% OPHTH SOLN 2ML BOTTLE OP ×3 (09:48)
[2024-06-15] MEDS: SODIUM CHLORIDE 0.9% 10ML FLUSH SYRINGE 10 ML IV (10:05)
[2024-06-15] MEDS: MIDAZOLAM 2MG/2ML VIAL 1 MG IV (10:05)
[2024-06-15] MEDS: TIMOLOL 0.5% OPTH SOLN 5ML OP (10:15)
[2024-06-15] MEDS: TRI-MOXI 15MG/1MG/ML 1ML OPHTH VIAL 1 ML OP (10:16)
[2024-06-15] MEDS: LIDOCAINE 1% PF 2ML AMPULE 2 ML IJ (10:16)
--- NOTE | 2024-06-15 11:42 | [facility].PROCNOTE ---
[facility] Procedure Note Date: 06/15/24 Time: 11:42 Procedure Note:: Preoperative Diagnosis: Cataract combined NS Cortical Complex [Right] Eye Postop diagnosis: same Operation: Microscopic phacoemulsification with intraocular lens implant [Right] Eye Specimen: None Blood Loss: None The patient was examined in the office with a complaint of poor vision in the [right] eye. The patient reports that this interferes with ADLs such as reading, watching TV and/or driving or the vision is like looking through a foggy haze and is very troubling. The patient was examined and found to have a visually significant cataract with best corrected vision of [20/400] by refraction and/or glare testing. Treatment options, risks and benefits were explained and the patient elected to have cataract surgery in an attempt to improve their vision. The patient had the eye anesthetized with topical tetracaine, the eye ways prepped and draped in the usual fashion for cataract surgery. A paracentesis and a temporal keratotomy were made. 0.2cc of 1% lidocaine PF was placed into the anterior chamber. And aqueous/viscoelastic exchange was done and a 360 degree capsulorexis was performed. Through hydrodissection and delineation with BSS on a cannula was done. The lens nucleus was phecoemulsified with CDE of [7.28]. Residual cortical material was removed using automated I&A The capsular bag was deepened with viscoelastica and a PCIOL was placed in the capsular bag with good centration and stability. Residual viscoelastic was removed using automated I&A. The keratotomy incision was hydrated with BSS on a cannula. The wound were checked and found to be water tight. IOP was checked digitally and adjusted as needed so as not to be too high. 1 drop of timolol 0.5%, ofloxacin, prednisolone acetate and ketorolac was instilled and eye shield taped over the eye. The patient was taken to recovery in good condition and will be seen postoperatively.
== END 2024-06-15 10:50 | disposition home or self-care (01) ==
PROVIDERS: PCP Internal Medicine; Visit Provider Ophthalmology
PROC: (CPT 66984; principal; 2024-06-15 10:30)
DX: H25.011 Cortical age-related cataract, right eye (principal)
CPT/HCPCS: 66984; J2250; V2632

== ENCOUNTER 2024-09-10 09:24 | Outpatient (CLI) | payer MEDICARE, SELFPAY ==
[2024-09-10 13:23] LABS: Basophils % 0.2 % (0.1-2.0); Hematocrit 30.3 % (37.0-47.0); Immature Granulocytes # 0.06 10^3uL; Immature Granulocytes % 0.4 %; Lymphocytes # 1.4 K/mm3 (0.7-4.5); Lymphocytes % 9.2 % (10-50); Mean Corpuscular Hemoglobin 31.1 pg (27.0-31.2); Mean Corpuscular Volume 94.1 fl (81-99); Monocytes # 0.4 K/mm3 (0.1-1.0); Neutrophils # 12.8 K/mm3 (1.8-7.8); Neutrophils % 87.2 % (37.0-80.0); Nucleated Red Blood Cells # 0 10^3/uL; Nucleated Red Blood Cells % 0 %; Platelet Count 444 K/mm3 (142-424); Red Blood Count 3.22 M/mm3 (4.20-5.40); Red Cell Distribution Width 13.2 % (11.5-17.5); Red Cell Distribution Width-SD 45.6 fL; White Blood Count 14.7 K/mm3 (4.8-10.8)
[2024-09-10 13:57] LABS: Chloride 108 mmol/L (98-107)
[2024-09-10 13:58] LABS: Sodium 138 mmol/L (136-145)
[2024-09-10 14:00] LABS: Alanine Aminotransferase 20 U/L (12-78); Alkaline Phosphatase 168 U/L (38-126); Aspartate Amino Transferase 28 U/L (14-36); Bilirubin,Total 0.5 mg/dl (0.2-1.3); Blood Urea Nitrogen 41 mg/dl (7-17); Carbon Dioxide 24 mmol/L (22.0-30.0); Estimated Glomerular Filt Rate 36 ml/min (>60); GFR (African American) 44 ML/MIN (>60)
[2024-09-10 14:01] LABS: Albumin/Globulin Ratio 1.5 (1.1-1.8); Calcium 9.9 mg/dl (8.4-10.2); Chol/HDL Ratio 3.3 (1-3.5); Cholesterol 200 mg/dl (140-200); Creatine Kinase 49 U/L (30-135); Globulin 2.6 g/dL (1.3-3.2); Glucose 120 mg/dl (74-100); HDL Cholesterol 60 mg/dl (40-60); Total Protein,Serum 6.6 g/dl (6.3-8.2); Triglycerides 75 mg/dl (30-150); VLDL Cholesterol 15 mg/dL (0-40)
[2024-09-10 14:13] LABS: Direct LDL Cholesterol 97.24 mg/dL (100-129)
== END 2024-09-10 23:59 | disposition home or self-care (01) ==
LOC: LAB.DROPOF 09-13 09:24
PROVIDERS: PCP Internal Medicine; Visit Provider Internal Medicine
DX: Z00.00 Encounter for general adult medical examination without abnormal findings (principal); M79.10 Myalgia, unspecified site; Z13.220 Encounter for screening for lipoid disorders
CPT/HCPCS: 80053; 80061; 82550; 85025

== ENCOUNTER 2024-10-27 14:45 | Outpatient (CLI) | payer MEDICARE, SELFPAY ==
[2024-10-27 20:06] LABS: Alanine Aminotransferase 20 U/L (12-78); Albumin Level 3.8 g/dl (3.5-5.0); Albumin/Globulin Ratio 1.7 (1.1-1.8); Alkaline Phosphatase 158 U/L (38-126); Anion Gap 12.7 mEq/L (5-15); Aspartate Amino Transferase 30 U/L (14-36); Bilirubin,Total 0.5 mg/dl (0.2-1.3); Blood Urea Nitrogen 30 mg/dl (7-17); Calcium 9.8 mg/dl (8.4-10.2); Carbon Dioxide 24 mmol/L (22.0-30.0); Chloride 105 mmol/L (98-107); Creatinine,Serum 1.30 mg/dl (0.52-1.04); Estimated Glomerular Filt Rate 40 ml/min (>60); GFR (African American) 48 ML/MIN (>60); Globulin 2.2 g/dL (1.3-3.2); Glucose 89 mg/dl (74-100); Potassium 4.7 mmoL/L (3.5-5.1); Sodium 137 mmol/L (136-145); Total Protein,Serum 6.0 g/dl (6.3-8.2); Uric Acid 5.3 mg/dl (2.5-6.2)
[2024-10-27 20:19] LABS: Free T4 (Free Thyroxine) 1.50 ng/dl (0.78-2.19)
[2024-10-27 20:35] LABS: Thyroid Stimulating Hormone 2.36 uIU/mL (0.465-4.68)
== END 2024-10-27 23:59 | disposition home or self-care (01) ==
LOC: LAB.DROPOF 10-28 11:05
PROVIDERS: PCP Internal Medicine; Visit Provider Internal Medicine
DX: M10.9 Gout, unspecified (principal); E03.9 Hypothyroidism, unspecified; R74.8 Abnormal levels of other serum enzymes
CPT/HCPCS: 80053; 84439; 84443; 84550

== ENCOUNTER 2024-12-07 11:20 | Outpatient (CLI) | payer MEDICARE, SELFPAY ==
--- NOTE | 2024-12-07 11:24 | XR_ITS ---
FINAL REPORT CLINICAL HISTORY: arthralgia of b hands FINDINGS: RIGHT HAND Three views demonstrate no acute fracture or dislocation. There are moderate changes of osteoarthritis, greatest at the DIP, PIP and MCP joints. Some erosion is also seen of the 2nd and 3rd MCP joints and second DIP joint suggestive of additional component of arthritis such as rheumatoid or psoriatic arthritis. There is significant soft tissue swelling of the second DIP joint. IMPRESSION: Moderate changes of osteoarthritis with possible component of rheumatoid or psoriatic arthritis. Reviewed, Interpreted and Dictated by Brittni Grant MD Transcribed by Pilar Torres Authenticated and [facility]
--- NOTE | 2024-12-07 11:24 | XR_ITS ---
FINAL REPORT CLINICAL HISTORY: arthralgia FINDINGS: LEFT HAND Three views of the left hand were obtained. There is moderate osteoarthritis of the DIP, PIP and MCP joints. There is a fracture/subluxation involving the third DIP joint with anterior subluxation and fracture involving the third distal phalangeal base. There is no evidence of bony erosion. IMPRESSION: Fracture/subluxation of the third DIP joint with anterior subluxation and fracture involving the third distal phalangeal base. Reviewed, Interpreted and Dictated by Brittni Grant MD Transcribed by Pilar Torres Authenticated and [facility]
[2024-12-07 14:43] LABS: Hematocrit 30.5 % (37.0-47.0); Hemoglobin 9.8 g/dL (12.2-16.2); Immature Granulocytes % 0.1 %; Mean Corpuscular HGB Conc 32.1 g/dL (31.8-35.4); Mean Corpuscular Hemoglobin 31.1 pg (27.0-31.2); Mean Corpuscular Volume 96.8 fl (81-99); Nucleated Red Blood Cells % 0 %; Platelet Count 373 K/mm3 (142-424); Red Blood Count 3.15 M/mm3 (4.20-5.40); Red Cell Distribution Width-SD 48.9 fL; White Blood Count 8.2 K/mm3 (4.8-10.8)
[2024-12-07 16:02] LABS: Uric Acid 5.2 mg/dl (2.5-6.2)
[2024-12-09 14:30] LABS: RA Latex Turbid. <10.0 IU/mL (<14.0)
== END 2024-12-07 23:59 | disposition home or self-care (01) ==
LOC: RAD 11:21
PROVIDERS: PCP Internal Medicine; Visit Provider Nurse Practitioner Family
DX: S62.633A Displaced fracture of distal phalanx of left middle finger, initial encounter for closed fracture (principal); M19.041 Primary osteoarthritis, right hand; R93.6 Abnormal findings on diagnostic imaging of limbs
CPT/HCPCS: 73130; 84550; 85025; 85651; 86038; 86431

== ENCOUNTER 2025-01-13 09:36 | Outpatient (CLI) | payer MEDICARE, SELFPAY ==
--- NOTE | 2025-01-13 09:38 | XR_ITS ---
FINAL REPORT CLINICAL HISTORY: left knee pain COMPARISON: 04/24/2023 FINDINGS: LEFT KNEE Three views were obtained. There is no fracture or dislocation. There is moderate tricompartment degenerative change. The bones are osteopenic. There is no joint effusion. No soft tissue abnormality is identified. IMPRESSION: Moderate osteoarthritis. Reviewed, Interpreted and Dictated by Brittni Grant MD Transcribed by Alejandrina Durbin Authenticated and [facility]
--- NOTE | 2025-01-13 09:38 | XR_ITS ---
FINAL REPORT CLINICAL HISTORY: right knee pain COMPARISON: 04/24/2023 FINDINGS: RIGHT KNEE Three views were obtained. There is no fracture or dislocation. There are moderate osteoarthritic changes. The bones are osteopenic. There is improved joint effusion since the prior exam. No soft tissue abnormality is identified. IMPRESSION: Moderate osteoarthritis. Reviewed, Interpreted and Dictated by Brittni Grant MD Transcribed by Alejandrina Durbin Authenticated and . [facility]
--- NOTE | 2025-01-13 09:38 | XR_ITS ---
FINAL REPORT CLINICAL HISTORY: right hip pain FINDINGS: RIGHT HIP Three views were obtained. There is no fracture or dislocation. There are moderate degenerative changes. There is post arthroplasty change of the left hip. IMPRESSION: Degenerative and postsurgical changes. Reviewed, Interpreted and Dictated by Brittni Grant MD Transcribed by Alejandrina Durbin Authenticated and [facility]
== END 2025-01-13 23:59 | disposition home or self-care (01) ==
LOC: RAD 09:36
PROVIDERS: PCP Internal Medicine; Visit Provider Physician Assistant Surgical
DX: M17.11 Unilateral primary osteoarthritis, right knee (principal); M17.12 Unilateral primary osteoarthritis, left knee; M16.11 Unilateral primary osteoarthritis, right hip; Z96.641 Presence of right artificial hip joint
CPT/HCPCS: 73502; 73562